=== PATIENT | male | born 1995 | race African-American/Black ===

== ENCOUNTER 2020-02-09 12:31 | Emergency (ER) | payer OTHER ==
[~2020-02-09] VITALS: Ht 167.6 cm; Wt 71.2 kg
[2020-02-09 12:35] VITALS: BP 137/96
--- NOTE | 2020-02-09 13:13 | NUR ---
URINE SENT TO LAB. Patient discharged to home in stable condition. Written and verbal after care instructions given. Patient verbalizes understanding of instruction.
== END 2020-02-09 13:16 | disposition home or self-care (01) ==
LOC: ER 12:41
DX: F19.10 Other psychoactive substance abuse, uncomplicated (principal); F32.9 Major depressive disorder, single episode, unspecified; F41.9 Anxiety disorder, unspecified
CPT/HCPCS: 80305